=== PATIENT | male | born 1995 ===

== ENCOUNTER 2017-12-29 22:40 | Emergency (ER) | payer OTHER ==
[2017-12-29 23:08] VITALS: BP 161/93; PULSE 84; RESP 16; TEMP 98.2; O2SAT 97
--- NOTE | 2017-12-29 23:39 | ED PDOC ---
HPI: Wound Care - HPI Time Seen by Provider: 12/29/17 23:14 Chief Complaint (Nursing): Abnormal Skin Integrity Chief Complaint (Provider): Bump on left side of face History Per: Patient Exam Limitations: no limitations Onset/Duration Of Symptoms: Days (2 months ) Current Symptoms Are (Timing): Still Present Additional Complaint(s): 22 yo male with no medical problems presents for evaluation of bump on the left side of the face. Pt states it has been there 2 months and has not changed. No pain. No drainage. Past Medical History Reviewed: Historical Data, Nursing Documentation, Vital Signs Vital Signs: Last Vital Signs Temp 98.2 F 12/29/17 23:06 Pulse 84 12/29/17 23:06 Resp 16 12/29/17 23:06 BP 161/93 H 12/29/17 23:06 Pulse Ox 97 12/29/17 23:06 - Medical History PMH: No Chronic Diseases - Surgical History Surgical History: No Surg Hx - Family History Family History: States: No Known Family Hx - Living Arrangements Living Arrangements: With Family - Social History Current smoker - smoking cessation education provided: No - Allergies Allergies/Adverse Reactions: Allergies Allergy/AdvReac Type Severity Reaction Status Date / Time No Known Allergies Allergy Verified 12/29/17 23:08 Review of Systems ROS Statement: Except As Marked, All Systems Reviewed And Found Negative Constitutional: Negative for: Fever, Chills Skin: Positive for: Other Physical Exam - Reviewed Nursing Documentation Reviewed: Yes Vital Signs Reviewed: Yes - Physical Exam Appears: Positive for: Well, Non-toxic, No Acute Distress Head Exam: Positive for: ATRAUMATIC, NORMAL INSPECTION, NORMOCEPHALIC Skin: Positive for: Normal Color ((+) soft, palpable, freely mobile mass which is non-tender on the left cheek ), Warm Eye Exam: Positive for: Normal appearance ENT: Positive for: Normal ENT Inspection Neck: Positive for: Normal Cardiovascular/Chest: Negative for: Bradycardia, Tachycardia Neurologic/Psych: Positive for: Alert - ECG O2 Sat by Pulse Oximetry: 97 Medical Decision Making Medical Decision Making: 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 Disposition - Clinical Impression Clinical Impression: Cyst - Patient ED Disposition Is Patient to be Admitted: No Counseled Patient/Family Regarding: Diagnosis, Need For Followup - Disposition Disposition: Routine/Home Disposition Time: 23:37 Condition: GOOD Instructions: Ganglion Cyst Print Language: SYRIAC
== END 2017-12-30 00:31 | disposition home or self-care (01) ==
LOC: H.ER 22:40
DX: L72.3 Sebaceous cyst (principal)